=== PATIENT | female | born 1990 | race Caucasian/White ===

== ENCOUNTER 2019-01-29 08:00 | Emergency (ER) | payer MEDICAID ==
[~2019-01-29] VITALS: Ht 175.3 cm; Wt 64.4 kg
[2019-01-29 08:46] VITALS: BP 114/79
[2019-01-29] MEDS ORDERED: METHOCARBAMOL 500 MG TAB PO ONE (09:00)
[2019-01-29] MEDS ORDERED: KETOROLAC TROMETH 60MG/2ML VIAL IM ONE (09:00)
== END 2019-01-29 09:15 | disposition home or self-care (01) ==
LOC: ER 08:00
DX: M54.16 Radiculopathy, lumbar region (principal); F17.210 Nicotine dependence, cigarettes, uncomplicated; Z88.8 Allergy status to other drugs, medicaments and biological substances

== ENCOUNTER 2019-06-15 19:35 | Emergency (ER) | payer MEDICAID ==
[~2019-06-15] VITALS: Ht 175.3 cm; Wt 64.0 kg
[2019-06-16] MEDS ORDERED: IBUPROFEN 800 MG TAB PO ONE (00:15)
[2019-06-16 00:39] VITALS: BP 107/84
== END 2019-06-16 00:42 | disposition home or self-care (01) ==
LOC: ER 19:35
DX: S63.502A Unspecified sprain of left wrist, initial encounter (principal); W00.0XXA Fall on same level due to ice and snow, initial encounter; Y93.01 Activity, walking, marching and hiking; Y92.89 Other specified places as the place of occurrence of the external cause; Y99.8 Other external cause status
CPT/HCPCS: 73130

== ENCOUNTER 2019-12-06 15:08 | Emergency (ER) | payer MEDICAID ==
[~2019-12-06] VITALS: Ht 175.3 cm; Wt 69.9 kg
[2019-12-06 16:04] VITALS: BP 122/56
== END 2019-12-06 16:54 | disposition home or self-care (01) ==
LOC: ER 15:08
DX: M23.91 Unspecified internal derangement of right knee (principal); M25.562 Pain in left knee; M25.571 Pain in right ankle and joints of right foot; M25.572 Pain in left ankle and joints of left foot; M79.642 Pain in left hand; M79.641 Pain in right hand; F17.210 Nicotine dependence, cigarettes, uncomplicated; Z88.8 Allergy status to other drugs, medicaments and biological substances
CPT/HCPCS: 73562